=== PATIENT | female | born 1940 | race Caucasian/White ===

== ENCOUNTER 2016-10-18 17:26 | Inpatient (IN) | payer MEDICARE ==
[~2016-10-18] VITALS: Ht 154.9 cm; Wt 57.2 kg
[~2016-10-18 17:26] MED LIST: CHOL1TAB16 PO; PRAV20 PO
[2016-10-18 17:30] VITALS: BP 169/73; PULSE 89; RESP 17; TEMP 99.5; O2SAT 99
--- NOTE | 2016-10-18 17:58 | PD ---
HPI Chief Complaint: General Weakness Time Seen by Provider: 17:57 Travel History International Travel<30 days: No Contact w/Intl Traveler<30days: No Traveled to known affect area: No History of Present Illness HPI 76-year-old female came to the emergency room with history of feeling sudden onset weakness that started at about 1:30 PM today. Patient is been treated for allergic reaction for a diffuse rash that has developed for past 4 days. Also she is been treated for a walking pneumonia by her primary care. Patient is taking Medrol Dosepak and Zithromax for those. She says she has not been feeling well over the past 3-4 days but this afternoon after eating her lunch she got significantly weak and lethargic. Family called 911 and EMS gave her IV Benadryl. [facility] Past Medical History Narrative Medical List of her past medical history as reviewed from the nursing note. Cancer: No Cardiovascular Problems: No High Cholesterol: Yes Diabetes: No Endocrine: No Genitourinary: No Hepatitis: No Hiatal Hernia: No Immune Disorder: Yes (HX RHEUMATOID ARTHRITIS) Musculoskeletal: Yes (RHEUMATOID ARTHRITIS (REMISSION)) Neurologic: No Psychiatric: No Reproductive: No Respiratory: No Thyroid Disease: No Menopausal: Yes Tubal Ligation: Yes Past Surgical History Abdominal Surgery: No AICD: No Body Medical Devices: NONE Ear Surgery: No Endocrine Surgery: No Eye Surgery: Yes (LEFT EYE CATARACT EXTRACT.) Genitourinary Surgery: No Gynecologic Surgery: Yes (TUBAL LIG.) Joint Replacement: No Oral Surgery: No Pacemaker: No Thoracic Surgery: Yes (YESICA BREAST BIOPSIES) Other Surgery: Yes (breast biopsy/lump regmoval) Social History Alcohol Use: No Tobacco Use: No Substance Use: No Allergies-Medications (Allergen,Severity, Reaction): Coded Allergies: Cortisporin (Verified Allergy, Severe, SWEELING, ITCHING, 10/18/16) Penicillin (Verified Allergy, Severe, PT DENIES ALLERY, 10/18/16) Sulfa (Verified Allergy, Severe, PT DENIES ALLERGY, 10/18/16) Hydrocortisone (Verified Allergy, Intermediate, SWELLING/RASH, 10/18/16) Neomycin (Verified Allergy, Intermediate, SWELLING/RASH, 10/18/16) Simvastatin (Verified Allergy, Intermediate, RASH/SWELLING/ITCHING, ) Triamcinolone (Verified Allergy, Intermediate, SWELLING/RASH, 10/18/16) Aspirin (Verified Adverse Reaction, Severe, DIZZINESS, LIGHTHEADED, ) Augmentin (Verified Adverse Reaction, Severe, Nausea/Vomiting, 10/18/16) Uncoded Allergies: THIMEROSAL (Allergy, Intermediate, SWELLING/RASH, 11/02/15) [id number] (Allergy, Intermediate, SEVERE SWELLING AND REDNESS , 11/02/15) Comments List of her allergies reviewed from the nursing note. Reported Meds & Prescriptions Reported Meds & Active Scripts Active No Active Prescriptions or Reported Medications Narrative Medication List of her home medications reviewed from the nursing note. Review of Systems Except as stated in HPI: all other systems reviewed are Neg Physical Exam Narrative GENERAL: Somnolent, wakes up and answers questions appropriately, moderate distress SKIN: Warm and dry. Maculopapular erythematous Generalized rash with blanching HEAD: Atraumatic. Normocephalic. EYES: Pupils equal and round. No scleral icterus. No injection or drainage. ENT: No nasal bleeding or discharge. Mucous membranes pink and moist. NECK: Trachea midline. No JVD. CARDIOVASCULAR: Regular rate and rhythm. No murmur appreciated. RESPIRATORY: No accessory muscle use. Clear to auscultation. Breath sounds equal bilaterally. GASTROINTESTINAL: Abdomen soft, non-tender, nondistended. Hepatic and splenic margins not palpable. MUSCULOSKELETAL: No obvious deformities. No clubbing. No cyanosis. No edema. NEUROLOGICAL: Awake and alert. No obvious cranial nerve deficits. Motor grossly within normal limits. Normal speech. PSYCHIATRIC: Appropriate mood and affect; insight and judgment normal. Data Data Last Documented VS Vital Signs Date Time Temp Pulse Resp B/P Pulse Ox O2 Delivery O2 Flow Rate FiO2 10/18/16 19:06 84 24 154/70 Room Air 10/18/16 17:34 99 10/18/16 17:30 99.5 Orders Complete Blood Count With Diff (10/18/16 18:07) Comprehensive Metabolic Panel (10/18/16 18:07) Lactic Acid Sepsis Protocol (10/18/16 18:07) Urinalysis - C+S If Indicated (10/18/16 18:07) Blood Culture (10/18/16 18:07) Chest, Single Ap (10/18/16 18:07) Blood Glucose (10/18/16 18:07) Ecg Monitoring (10/18/16 18:07) Iv Access Insert/Monitor (10/18/16 18:07) Oximetry (10/18/16 18:07) Oxygen Administration (10/18/16 18:07) Sodium Chlor 0.9% 1000 Ml Inj (Ns 1000 M (10/18/16 18:07) Sodium Chlor 0.9% 1000 Ml Inj (Ns 1000 M (10/18/16 18:07) Admit Order (Ed Use Only) (10/18/16 19:42) Labs Laboratory Tests Test 10/18/16 18:15 White Blood Count 10.2 TH/MM3 Red Blood Count 4.67 MIL/MM3 Hemoglobin 14.8 GM/DL Hematocrit 43.7 % Mean Corpuscular Volume 93.6 FL Mean Corpuscular Hemoglobin 31.7 PG Mean Corpuscular Hemoglobin 33.9 % Concent Red Cell Distribution Width 13.0 % Platelet Count 248 TH/MM3 Mean Platelet Volume 7.9 FL Neutrophils (%) (Auto) 89.9 % Lymphocytes (%) (Auto) 7.3 % Monocytes (%) (Auto) 2.3 % Eosinophils (%) (Auto) 0.4 % Basophils (%) (Auto) 0.1 % Neutrophils # (Auto) 9.2 TH/MM3 Lymphocytes # (Auto) 0.7 TH/MM3 Monocytes # (Auto) 0.2 TH/MM3 Eosinophils # (Auto) 0.0 TH/MM3 Basophils # (Auto) 0.0 TH/MM3 CBC Comment DIFF FINAL Differential Comment Urine Color LIGHT-YELLOW Urine Turbidity CLEAR Urine pH 7.0 Urine Specific [place] 1.004 Urine Protein NEG mg/dL Urine Glucose (UA) NEG mg/dL Urine Ketones 10 mg/dL Urine Occult Blood NEG Urine Nitrite NEG Urine Bilirubin NEG Urine Urobilinogen LESS THAN 2.0 MG/DL Urine Leukocyte Esterase NEG Urine WBC LESS THAN 1 /hpf Urine Squamous Epithelial <1 /hpf Cells Microscopic Urinalysis Comment CATH-CULT NOT IND Sodium Level 137 MEQ/L Potassium Level 4.2 MEQ/L Chloride Level 107 MEQ/L Carbon Dioxide Level 22.2 MEQ/L Anion Gap 8 MEQ/L Blood Urea Nitrogen 11 MG/DL Creatinine 0.86 MG/DL Estimat Glomerular Filtration 64 ML/MIN Rate Random Glucose 127 MG/DL Lactic Acid Level 1.3 mmol/L Calcium Level 8.0 MG/DL Total Bilirubin 0.5 MG/DL Aspartate Amino Transf 15 U/L (AST/SGOT) Alanine Aminotransferase 14 U/L (ALT/SGPT) Alkaline Phosphatase 65 U/L Total Protein 6.5 GM/DL Albumin 3.2 GM/DL MDM Medical Decision Making Medical Screen Exam Complete: Yes Emergency Medical Condition: Yes Medical Record Reviewed: Yes Differential Diagnosis Anaphylactic shock, allergic reaction, electrolyte abnormalities, sepsis Narrative Course 6:53 PM awaiting for the blood test results. Patient is getting IV fluid as per the protocol. Chest x-rays within normal limits. Case will be signed over to the oncoming ER physician. Procedures EKG Prior to Arrival: No Scripts No Active Prescriptions or Reported Meds Judy Ventura MD Oct 18, 2016 17:58
[2016-10-18] MEDS ORDERED: SODIUM CHLOR 0.9% 1000 ML INJ 800 ML IV ONE (18:07)
[2016-10-18] MEDS ORDERED: SODIUM CHLOR 0.9% 1000 ML INJ 1,000 ML IV ONE (18:07)
--- NOTE | 2016-10-18 18:49 | RADRPT ---
EXAM DATE/TIME: 10/18/2016 18:23 [facility] COMPARISON: No previous studies available for comparison. INDICATIONS : Shortness of breath and cough for the past week. MEDICAL HISTORY : None. SURGICAL HISTORY : Bilateral breast biopsy. ENCOUNTER: Initial ACUITY: 1 week PAIN SCORE: 2/10 LOCATION: Bilateral chest FINDINGS: A single view of the chest demonstrates the lungs to be symmetrically aerated without evidence of mas s, infiltrate or effusion. No evidence of pneumothorax. The cardiomediastinal contours are unremark able. Osseous structures are intact. CONCLUSION: The lungs are clear. Jaspal Ochoa MD on October 18, 2016 at 18:47 Board Certified Radiologist. This report was verified electronically.
[2016-10-18 18:52] LABS: AUTOMATED NEUTROPHIL # 9.2 TH/MM3 (1.8-7.7); BASOPHIL % 0.1 % (0.0-2.0); EOSINOPHIL % 0.4 % (0.0-4.0); HEMATOCRIT 43.7 % (35.0-46.0); HEMO FLAGS DIFF FINAL; LYMPH % 7.3 % (9.0-44.0); LYMPHOCYTE # 0.7 TH/MM3 (1.0-4.8); MEAN CELL VOLUME 93.6 FL (80.0-100.0); MEAN CORPUSCULAR HEMOGLOBIN 31.7 PG (27.0-34.0); MEAN CORPUSCULAR HGB CONC 33.9 % (32.0-36.0); MONO % 2.3 % (0.0-8.0); NEUT % 89.9 % (16.0-70.0); PLATELET COUNT 248 TH/MM3 (150-450); RED BLOOD COUNT 4.67 MIL/MM3 (4.00-5.30); WHITE BLOOD COUNT 10.2 TH/MM3 (4.0-11.0)
[2016-10-18 18:57] LABS: BLOOD, URINE NEG (NEG); GLUCOSE,URINE NEG (NEG); KETONE, URINE 10 mg/dL (NEG); NITRITE,URINE NEG (NEG); SQUAMOUS EPITHELIAL CELL URINE <1 /hpf (0-5); URINE COLOR LIGHT-YELLOW (YELLW/STRAW)
[2016-10-18 19:06] VITALS: BP 154/70; PULSE 84; RESP 24
[2016-10-18 19:09] LABS: COMMENT (UR) CATH-CULT NOT IND; CULTURE IF INDICATED CATH CULTURE NOT IND
[2016-10-18 19:14] LABS: ALKALINE PHOSPHATASE 65 U/L (45-117); ALT (GPT) 14 U/L (10-53); ANION GAP 8 MEQ/L (5-15); AST (GOT) 15 U/L (15-37); BICARBONATE 22.2 MEQ/L (21.0-32.0); BLOOD UREA NITROGEN 11 MG/DL (7-18); CHLORIDE 107 MEQ/L (98-107); GLOMERULAR FILTRATION RATE 64 ML/MIN (>89); POTASSIUM 4.2 MEQ/L (3.5-5.1); SODIUM (NA) 137 MEQ/L (136-145); TOTAL BILIRUBIN ADULT 0.5 MG/DL (0.2-1.0)
--- NOTE | 2016-10-18 19:22 | PD ---
Physical Exam Narrative Patient was seen by ED physician and signed out to me. Data Data Last Documented VS Vital Signs Date Time Temp Pulse Resp B/P Pulse Ox O2 Delivery O2 Flow Rate FiO2 10/18/16 19:06 84 24 154/70 Room Air 10/18/16 17:34 99 10/18/16 17:30 99.5 Orders Complete Blood Count With Diff (10/18/16 18:07) Comprehensive Metabolic Panel (10/18/16 18:07) Lactic Acid Sepsis Protocol (10/18/16 18:07) Urinalysis - C+S If Indicated (10/18/16 18:07) Blood Culture (10/18/16 18:07) Chest, Single Ap (10/18/16 18:07) Blood Glucose (10/18/16 18:07) Ecg Monitoring (10/18/16 18:07) Iv Access Insert/Monitor (10/18/16 18:07) Oximetry (10/18/16 18:07) Oxygen Administration (10/18/16 18:07) Sodium Chlor 0.9% 1000 Ml Inj (Ns 1000 M (10/18/16 18:07) Sodium Chlor 0.9% 1000 Ml Inj (Ns 1000 M (10/18/16 18:07) Labs Laboratory Tests Test 10/18/16 18:15 White Blood Count 10.2 TH/MM3 Red Blood Count 4.67 MIL/MM3 Hemoglobin 14.8 GM/DL Hematocrit 43.7 % Mean Corpuscular Volume 93.6 FL Mean Corpuscular Hemoglobin 31.7 PG Mean Corpuscular Hemoglobin 33.9 % Concent Red Cell Distribution Width 13.0 % Platelet Count 248 TH/MM3 Mean Platelet Volume 7.9 FL Neutrophils (%) (Auto) 89.9 % Lymphocytes (%) (Auto) 7.3 % Monocytes (%) (Auto) 2.3 % Eosinophils (%) (Auto) 0.4 % Basophils (%) (Auto) 0.1 % Neutrophils # (Auto) 9.2 TH/MM3 Lymphocytes # (Auto) 0.7 TH/MM3 Monocytes # (Auto) 0.2 TH/MM3 Eosinophils # (Auto) 0.0 TH/MM3 Basophils # (Auto) 0.0 TH/MM3 CBC Comment DIFF FINAL Differential Comment Urine Color LIGHT-YELLOW Urine Turbidity CLEAR Urine pH 7.0 Urine Specific [place] 1.004 Urine Protein NEG mg/dL Urine Glucose (UA) NEG mg/dL Urine Ketones 10 mg/dL Urine Occult Blood NEG Urine Nitrite NEG Urine Bilirubin NEG Urine Urobilinogen LESS THAN 2.0 MG/DL Urine Leukocyte Esterase NEG Urine WBC LESS THAN 1 /hpf Urine Squamous Epithelial <1 /hpf Cells Microscopic Urinalysis Comment CATH-CULT NOT IND Sodium Level 137 MEQ/L Potassium Level 4.2 MEQ/L Chloride Level 107 MEQ/L Carbon Dioxide Level 22.2 MEQ/L Anion Gap 8 MEQ/L Blood Urea Nitrogen 11 MG/DL Creatinine 0.86 MG/DL Estimat Glomerular Filtration 64 ML/MIN Rate Random Glucose 127 MG/DL Lactic Acid Level 1.3 mmol/L Calcium Level 8.0 MG/DL Total Bilirubin 0.5 MG/DL Aspartate Amino Transf 15 U/L (AST/SGOT) Alanine Aminotransferase 14 U/L (ALT/SGPT) Alkaline Phosphatase 65 U/L Total Protein 6.5 GM/DL Albumin 3.2 GM/DL MDM Supervised Visit with ADELINE: No Interpretation(s) Last Impressions Chest X-Ray 10/18/16 1807 Signed Impressions: Service Date/Time: Tuesday, October 18, 2016 18:23 - CONCLUSION: The lungs are clear. Jaspal Ochoa MD 1925 PM. CBC within normal limit. WBC 10.2. 89 neutrophil. CMP within normal limit. Lactic acid 1.3. UA negative. Diagnosis Primary Impression: Altered mental status Qualified Code: R41.82 - Altered mental status, unspecified altered mental status type Additional Impression: Allergic dermatitis Admitting Information Admitting Physician Requests: Observation Fredi Vega MD Oct 18, 2016 19:22
--- NOTE | 2016-10-18 19:49 | HHI.HP ---
[facility] Tyler Hill MD Admission Diagnosis generalized weakness. Allergic dermatitis. Diagnoses: (1) Generalized weakness Diagnosis: Principal (2) Viral syndrome Diagnosis: Principal (3) Allergic dermatitis Diagnosis: Principal Travel History International Travel<30 Days: No Contact w/Intl Traveler <30 Da: No Traveled to Known Affected Are: No History of Present Illness This is a 76-year-old female with a PMH of Rheumatoid Arthritis who was brought to the ER by family secondary to generalized weakness. Per pt and family, she was started on Zithro for PNA approx 1 wk ago w/ some improvement. States she developed rash on torso which she's had several times in the past, and for which she follows w/ a Authorization Specialist, diagnosed w/ Allergic Dermatitis from daphne/citrus. Seen by PCP on Thursday and states rash involved neck/trunk only , prescribed Prednisone and Benadryl but states rash has progressed to lower extremities-similar to previous episodes. Today, pt w/ significant weakness. Daughter reports she was unable to get her up at which point they called 911. S /p Benadryl IV en route to ER, somewhat lethargic on arrival, now AA&Ox4. Review of Systems Other ROS: 14 point review of systems otherwise negative. Past Family Social History Past Medical History PMH: Rheumatoid Arthritis Past Surgical History PAST SURGICAL HISTORY: Cataract Surgery, Tubal Ligation, Breast Biopsy Allergies: Coded Allergies: Cortisporin (Verified Allergy, Severe, SWEELING, ITCHING, 10/18/16) Penicillin (Verified Allergy, Severe, PT DENIES ALLERY, 10/18/16) Sulfa (Verified Allergy, Severe, PT DENIES ALLERGY, 10/18/16) Hydrocortisone (Verified Allergy, Intermediate, SWELLING/RASH, 10/18/16) Neomycin (Verified Allergy, Intermediate, SWELLING/RASH, 10/18/16) Simvastatin (Verified Allergy, Intermediate, RASH/SWELLING/ITCHING, ) Triamcinolone (Verified Allergy, Intermediate, SWELLING/RASH, 10/18/16) Aspirin (Verified Adverse Reaction, Severe, DIZZINESS, LIGHTHEADED, ) Augmentin (Verified Adverse Reaction, Severe, Nausea/Vomiting, 10/18/16) Uncoded Allergies: THIMEROSAL (Allergy, Intermediate, SWELLING/RASH, 11/02/15) [id number] (Allergy, Intermediate, SEVERE SWELLING AND REDNESS , 11/02/15) Family History PAST FAMILY HISTORY: Reviewed. No h/o DM or CAD Social History PAST SOCIAL HISTORY: Negative for alcohol, tobacco or drugs. Physical Exam Vital Signs Vital Signs Date Time Temp Pulse Resp B/P Pulse Ox O2 Delivery O2 Flow Rate FiO2 10/18/16 19:06 84 24 154/70 Room Air 10/18/16 17:34 89 17 99 Room Air 10/18/16 17:30 99.5 89 17 169/73 99 Physical Exam PE: GENERAL: Elderly white female in no acute distress, under several layers of blankets, appears to feel unwell. and daughter at bedside. HEENT: PERRLA, EOMI. No scleral icterus or conjunctival pallor. No lid lag or facial droop. CARDIOVASCULAR: Regular rate and rhythm. No obvious murmurs to auscultation. No chest tenderness to palpation. RESPIRATORY: No obvious rhonchi or wheezing. Clear to auscultation. Breath sounds equal bilaterally. GASTROINTESTINAL: Abdomen soft, non-tender, nondistended. BS normal. MUSCULOSKELETAL: Extremities without clubbing, cyanosis, or edema. No obvious deformities. Diffuse papular rash along trunk and extremities. NEUROLOGICAL: Awake, alert and oriented x4. No focal neurologic deficits. Moving both upper and lower extremities spontaneously. Laboratory Laboratory Tests Test 10/18/16 18:15 White Blood Count 10.2 Red Blood Count 4.67 Hemoglobin 14.8 Hematocrit 43.7 Mean Corpuscular Volume 93.6 Mean Corpuscular Hemoglobin 31.7 Mean Corpuscular Hemoglobin 33.9 Concent Red Cell Distribution Width 13.0 Platelet Count 248 Mean Platelet Volume 7.9 Neutrophils (%) (Auto) 89.9 Lymphocytes (%) (Auto) 7.3 Monocytes (%) (Auto) 2.3 Eosinophils (%) (Auto) 0.4 Basophils (%) (Auto) 0.1 Neutrophils # (Auto) 9.2 Lymphocytes # (Auto) 0.7 Monocytes # (Auto) 0.2 Eosinophils # (Auto) 0.0 Basophils # (Auto) 0.0 CBC Comment DIFF FINAL Differential Comment Urine Color LIGHT-YELLOW Urine Turbidity CLEAR Urine pH 7.0 Urine Specific [place] 1.004 Urine Protein NEG Urine Glucose (UA) NEG Urine Ketones 10 Urine Occult Blood NEG Urine Nitrite NEG Urine Bilirubin NEG Urine Urobilinogen LESS THAN 2.0 Urine Leukocyte Esterase NEG Urine WBC LESS THAN 1 Urine Squamous Epithelial <1 Cells Microscopic Urinalysis Comment CATH-CULT NOT IND Sodium Level 137 Potassium Level 4.2 Chloride Level 107 Carbon Dioxide Level 22.2 Anion Gap 8 Blood Urea Nitrogen 11 Creatinine 0.86 Estimat Glomerular Filtration 64 Rate Random Glucose 127 Lactic Acid Level 1.3 Calcium Level 8.0 Total Bilirubin 0.5 Aspartate Amino Transf 15 (AST/SGOT) Alanine Aminotransferase 14 (ALT/SGPT) Alkaline Phosphatase 65 Total Protein 6.5 Albumin 3.2 Date/Time Procedure Status Source Growth 10/18/16 18:20 Aerobic Blood Culture Received Blood Peripheral Pending 10/18/16 18:20 Anaerobic Blood Culture Received Blood Peripheral Pending Result Diagram: 10/18/16181410/18/161814 Assessment and Plan Problem List: (1) Generalized weakness ICD Code: R53.1 Status: Acute (2) Allergic dermatitis ICD Code: L23.9 Status: Acute (3) Viral syndrome ICD Code: B34.9 Status: Acute Assessment and Plan A/P: 1. Generalized Weakness: Likely multifactorial-Recent PNA, Viral Syndrome and Allergic Dermatitis, c/o progressive weakness x1 wk, unable to ambulate today. Vitals stable, labs unremarkable. IVF for hydration. Repeat labs in am. PT for eval/tx. 2. 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 Now w/ maculopapular rash involving trunk and extremities, similar to previous episodes. Started on Prednisone by PCP. Will give Solu-Medrol, Benadryl prn. Follow up w/ Authorization Specialist as planned. 3. Viral Syndrome: generalized weakness/malaise possibly related to viral syndrome. IVF as above, repeat labs in am. 4. DVT Prophylaxis: SCD/Teds. 5. Social work for d/c planning as needed. 6. Case discussed w/ ER physician at length. Maira Tucker MD Oct 18, 2016 19:49
[2016-10-18] MEDS ORDERED: ACETAMINOPHEN/HYDROcodone 325 MG/10 MG TAB PO PRN (20:00)
[2016-10-18] MEDS ORDERED: ACETAMINOPHEN/HYDROcodone 325 MG/5 MG TAB PO PRN (20:00)
[2016-10-18] MEDS ORDERED: ONDANSETRON HCL 4 MG/2 ML VIAL IVP PRN (20:00)
[2016-10-18] MEDS ORDERED: ACETAMINOPHEN 325 MG TAB PO PRN (20:00)
[2016-10-18] MEDS ORDERED: BISACODYL 10 MG SUPP PR PRN (20:00)
[2016-10-18] MEDS ORDERED: SODIUM CHLORIDE 0.9% FLUSH 5 ML FLUSH FLUSH PRN (20:00)
[2016-10-18] MEDS: SODIUM CHLOR 0.9% 1000 ML INJ 1,000 ML IV SCH (20:47)
[2016-10-18] MEDS: SODIUM CHLORIDE 0.9% FLUSH 5 ML FLUSH FLUSH SCH (21:00)
[2016-10-18] MEDS ORDERED: methylPREDNISolone SOD SUCC 125 MG/2 ML VIAL IV PUSH ONE (21:15)
[2016-10-18] MEDS: diphenhydrAMINE HCL 50 MG/ML VIAL IV PUSH PRN (21:26)
[2016-10-18 21:43] VITALS: BP 133/61; PULSE 88; RESP 20; O2SAT 92
[2016-10-18 22:01] VITALS: BP 162/70; PULSE 78; RESP 18; TEMP 97; O2SAT 95
[2016-10-18 23:50] VITALS: BP 108/52; PULSE 75; RESP 18; TEMP 96.2; O2SAT 95
[2016-10-19] VITALS (8 sets, daily range): BP systolic 119–177; BP diastolic 56–75; PULSE 78–102; RESP 17–22; TEMP 96–98.2; O2SAT 93–97
[2016-10-19] MEDS: diphenhydrAMINE HCL 50 MG/ML VIAL IV PUSH PRN ×2 (02:36→08:27)
[2016-10-19] MEDS ORDERED: diphenhydrAMINE HCL 50 MG/ML VIAL IV PUSH ONE ×2 (04:15)
[2016-10-19] MEDS: SODIUM CHLOR 0.9% 1000 ML INJ 1,000 ML IV SCH ×2 (06:00→18:45)
[2016-10-19] MEDS: SODIUM CHLORIDE 0.9% FLUSH 5 ML FLUSH FLUSH SCH ×2 (08:27→21:32)
[2016-10-19 08:59] LABS: AUTOMATED NEUTROPHIL # 12.1 TH/MM3 (1.8-7.7); EOSINOPHIL # 0.1 TH/MM3 (0-0.4); EOSINOPHIL % 0.4 % (0.0-4.0); HEMATOCRIT 44.3 % (35.0-46.0); HEMO FLAGS DIFF FINAL; LYMPH % 7.6 % (9.0-44.0); MEAN CELL VOLUME 94.3 FL (80.0-100.0); MEAN CORPUSCULAR HEMOGLOBIN 31.8 PG (27.0-34.0); MEAN CORPUSCULAR HGB CONC 33.7 % (32.0-36.0); MONO % 2.6 % (0.0-8.0); NEUT % 89.4 % (16.0-70.0); PLATELET COUNT 228 TH/MM3 (150-450); WHITE BLOOD COUNT 13.5 TH/MM3 (4.0-11.0)
[2016-10-19 09:07] LABS: ALKALINE PHOSPHATASE 64 U/L (45-117); ALT (GPT) 15 U/L (10-53); ANION GAP 11 MEQ/L (5-15); AST (GOT) 16 U/L (15-37); BICARBONATE 18.2 MEQ/L (21.0-32.0); BLOOD UREA NITROGEN 9 MG/DL (7-18); CHLORIDE 112 MEQ/L (98-107); GLOMERULAR FILTRATION RATE 57 ML/MIN (>89); SODIUM (NA) 141 MEQ/L (136-145); TOTAL BILIRUBIN ADULT 0.6 MG/DL (0.2-1.0)
--- NOTE | 2016-10-19 09:40 | HHI.PR ---
Subjective Remarks Follow up for rash, weakness. The patient complains of diffuse RUE and RLE numbness that has been intermittent throughout the night and now increasing in intensity. Reports some blurred vision from her right eye and sees a spot in the right eye. She states she had cataract surgery approximately 4months ago. No slurred speech or unilateral weakness. The rash has not improved overnight, occasionally pruritic. She says she's seen Dr. Benavidez for allergies in the past. She still feels very weak today. She has not yet ambulated today. She has no other medical complaints at this time. Objective Vitals Vital Signs Date Time Temp Pulse Resp B/P Pulse Ox O2 Delivery O2 Flow Rate FiO2 10/19/16 07:30 97.8 84 20 145/70 94 10/19/16 04:42 96.0 80 18 119/56 95 10/18/16 23:50 96.2 75 18 108/52 95 10/18/16 22:01 97.0 78 18 162/70 95 10/18/16 21:43 88 20 133/61 92 Room Air 10/18/16 19:06 84 24 154/70 Room Air 10/18/16 17:34 89 17 99 Room Air 10/18/16 17:30 99.5 89 17 169/73 99 I/O 10/18/16 10/18/16 10/18/16 10/19/16 10/19/16 10/19/16 07:00 15:00 23:00 07:00 15:00 23:00 Intake Total 1235 ml Balance 1235 ml Intake Oral 480 ml IV Total 755 ml # Voids 1 6 # Bowel Movements 1 Result Diagram: 10/19/16 0815 10/19/16 0815 Imaging Last Impressions Chest X-Ray 10/18/16 1807 Signed Impressions: Service Date/Time: Tuesday, October 18, 2016 18:23 - CONCLUSION: The lungs are clear. Jaspal Ochoa MD Objective Remarks GENERAL: Well-developed, well-nourished female patient in [facility]. SKIN: Warm and dry. Diffuse maculopapular rash throughout neck, chest, trunk, back, and spreads down to the bilateral lower extremities. HEAD: Atraumatic. Normocephalic. EYES: Pupils equal and round. No scleral icterus. No injection or drainage. ENT: No nasal bleeding or discharge. Mucous membranes pink and moist. NECK: Trachea midline. CARDIOVASCULAR: Regular rate and rhythm. No murmur. RESPIRATORY: No accessory muscle use. Clear to auscultation. Breath sounds equal bilaterally. GASTROINTESTINAL: Abdomen soft, non-tender, nondistended. Hepatic and splenic margins not palpable. MUSCULOSKELETAL: Extremities without clubbing, cyanosis, or edema. No obvious deformities. NEUROLOGICAL: Awake and alert. No obvious cranial nerve deficits. Motor grossly within normal limits. 5/5 muscle strength in the arms and legs. Normal speech. No pronator drift. PSYCHIATRIC: Appropriate mood and affect; insight and judgment normal. Medications and IVs Current Medications Medications (Trade) Dose Ordered Sig/Krishan Route Start Time Stop Time Status Last Admin (NS 1000 ml Inj) 1,000 ml @ 100 mls/hr Q10H IV 10/18/16 20:00 10/18/16 20:47 (NS Flush) 2 ml UNSCH PRN FLUSH 10/18/16 20:00 (NS Flush) 2 ml BID FLUSH 10/18/16 21:00 (Zofran Inj) 4 mg Q6H PRN IVP 10/18/16 20:00 (Dulcolax Supp) 10 mg DAILY PRN DE 10/18/16 20:00 (Tylenol) 650 mg Q6H PRN PO 10/18/16 20:00 10/18/16 23:06 (Marshall 5-325 Mg) 1 tab Q4H PRN PO 10/18/16 20:00 (Marshall 10-325 Mg) 1 tab Q4H PRN PO 10/18/16 20:00 (Benadryl Inj) 25 mg Q4H PRN IV PUSH 10/18/16 21:15 10/19/16 08:27 Urinary Catheter: No Vascular Central Line Catheter: No A/P Problem List: (1) Generalized weakness ICD Code: R53.1 Status: Acute (2) Allergic dermatitis ICD Code: L23.9 Status: Acute (3) Viral syndrome ICD Code: B34.9 Status: Acute Assessment and Plan 76-year-old female with a PMH of Rheumatoid Arthritis who was brought to the ER by family secondary to rash and generalized weakness. Generalized Weakness: Likely multifactorial-Recent PNA, Viral Syndrome and Allergic Dermatitis, c/o progressive weakness x1 wk, unable to ambulate. Vitals stable, labs unremarkable. IVF for hydration. PT for eval/tx. 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 Now w/ maculopapular rash involving trunk/extremities, similar to previous episodes. Started on Prednisone by PCP. S/p IV Solumedrol, will continue on Prednisone 50mg po daily , Zantac bid, Zyrtec hs. Stop benadryl, likely contributing to weakness/ drowsiness. Give Epinephrine x1. Topical benadryl. Follow up w/ Seed Yeast Operator as planned. RUE/RLE Numbness and Blurred Vision: concern for TIA/CVA. Check Head CT. Consult neurology. Viral Syndrome: generalized weakness/malaise possibly related to viral syndrome. CXR clear. IVF. DVT Prophylaxis: SCD/Teds. Written by Shira Natarajan, acting as scribe for Dr. Anthony on 10/19/16 at 09:34. The documentation accurately reflects the work performed [id number] by va Dr. Anthony on 10/19/16 at 09:34. Shira Natarajan PA-C Oct 19, 2016 09:40 Cristina Anthony MD Oct 19, 2016 14:36
[2016-10-19] MEDS ORDERED: EPINEPHrine HCL (1:1000) 1 MG/ML VIAL IM ONE (10:00)
[2016-10-19] MEDS: predniSONE 50 MG TAB PO SCH (10:41)
[2016-10-19] MEDS: FAMOTIDINE 20 MG TAB PO SCH ×2 (10:41→21:31)
[2016-10-19] MEDS: diphenhydrAMINE HCL 2%/ZINC ACETATE 0.1% CREAM 30 APPLIC/30 GM TUBE TOPICAL PRN ×2 (10:42→22:30)
--- NOTE | 2016-10-19 11:24 | RADRPT ---
EXAM DATE/TIME: 10/19/2016 11:03 [facility] COMPARISON: CT BRAIN W/O CONTRAST, November 02, 2015, 19:58. INDICATIONS : Right extremity weakness. RADIATION DOSE: 33.74 CTDIvol (mGy) MEDICAL HISTORY : Cardiovascular disease. SURGICAL HISTORY : None. ENCOUNTER: Initial ACUITY: 1 day PAIN SCALE: 0/10 LOCATION: cranial TECHNIQUE: Multiple contiguous axial images were obtained of the head. Using automated exposure control and adj ustment of the mA and/or kV according to patient size, radiation dose was kept as low as reasonably a chievable to obtain optimal diagnostic quality images. FINDINGS: CEREBRUM: The ventricles are normal for age. Stable cortical atrophy and chronic white matter changes. No evid ence of midline shift, mass lesion, hemorrhage or acute infarction. No extra-axial fluid collections are seen. POSTERIOR FOSSA: The cerebellum and brainstem are intact. The 4th ventricle is midline. The cerebellopontine angle i s unremarkable. EXTRACRANIAL: The visualized portion of the orbits is intact. SKULL: The calvaria is intact. No evidence of skull fracture. CONCLUSION: Normal examination for a patient of this age. No significant change has occurred. Ralph Fontenot MD on October 19, 2016 at 11:22 Board Certified Radiologist. This report was verified electronically.
--- NOTE | 2016-10-19 13:13 | EKG ---
Date Performed: 10/18/2016 Time Performed: 21:10:04 PTAGE: 76 years EKG: Sinus rhythm WITH OCCASIONAL SUPRAVENTRICULAR PREMATURE COMPLEXES LOW QRS VOLTAGE IN PRECORDIAL LEADS ST DEVIATIO N AND MODERATE T-WAVE ABNORMALITY, CONSIDER ANTERIOR ISCHEMIA ABNORMAL ECG Compared to prior tracing no significant change PREVIOUS TRACING : 03/31/2016 10.09 DOCTOR: Tyler Andrade Interpretating Date/Time 10/19/2016 13:10:47
[2016-10-19] MEDS ORDERED: LORazepam 2 MG/ML VIAL IV PUSH PRN (15:00)
[2016-10-19] MEDS ORDERED: GADODIAMIDE PF 287 MG/ML 20 ML VIAL (for RAD MRI) IV ONE (15:07)
[2016-10-19] MEDS: CLOPIDOGREL 75 MG TAB PO SCH (15:20)
--- NOTE | 2016-10-19 15:40 | RADRPT ---
EXAM DATE/TIME: 10/19/2016 14:49 [facility] COMPARISON: MRA CAROTIDS W CONTRAST, October 19, 2016, 14:49. MRI BRAIN W/O CONTRAST, October 19, 2016, 14:49. INDICATIONS : Right sided weakness. MEDICAL HISTORY : None. SURGICAL HISTORY : Tubal ligation. ENCOUNTER: Initial ACUITY: 1 day PAIN SCORE: 0/10 LOCATION: Please note a normal MRA of the brain does not entirely exclude the possibility of a small aneurysm, nor the possibility of distal intracranial vessel disease. TECHNIQUE: 3D time of flight MRA was performed. Source images, multiplanar STS MIP, and 3D volume MIP reconstru ctions were reviewed. FINDINGS: The anterior circulation is intact with symmetric sized A1 and M1 segments bilaterally. No flow is s een in the anterior communicating artery. The basilar artery is fed predominantly from the right vertebral. The basilar tip is normal in confi guration. The superior cerebellar arteries are symmetric. There is intact flow in the right posteri or cerebral artery. There is very little flow discernible in the left posterior cerebral artery. So me flow is seen in the left posterior communicating artery, and this probably provides the limited fl ow that is present. MRI demonstrates an acute infarction in the SECRETARIAL TEACHER distribution (posterior occipita l lobe). No flow in the right PCOM. CONCLUSION: Severely diminished flow in the left posterior cerebral artery from the origin of the basilar with a minimal contribution of flow from the left PCOM. This vascular abnormality does correlate with the a cute infarction seen on MRI. Jaspal Ochoa MD on October 19, 2016 at 15:32 Board Certified Radiologist. This report was verified electronically.
--- NOTE | 2016-10-19 15:48 | RADRPT ---
EXAM DATE/TIME: 10/19/2016 14:49 [facility] COMPARISON: MRA BRAIN W/O CONTRAST, October 19, 2016, 14:49. INDICATIONS : Right sided weakness. MEDICAL HISTORY : None. SURGICAL HISTORY : Tubal ligation. ENCOUNTER: Initial ACUITY: 1 day PAIN SCORE: 0/10 LOCATION: cranial TECHNIQUE: Multiplanar, multisequence MRI of the brain was performed without contrast. FINDINGS: Examination is abnormal demonstrating a focal area of restricted diffusion in the inferior left occip ital pole measuring up to 2.5 cm in transverse width. There is only minimal T1 prolongation and T2 p rolongation. No susceptibility artifact seen. There also a few scattered small areas of restricted diffusion superior and inferior to the dominant area in the left occipital lobe; all are within the d istribution of the posterior cerebral artery. No significant cerebral edema. The ventricles are nor mal in size. No extra axial fluid collections. No additional areas of acute infarction seen. No evidence of midline shift. The visualized structures of the orbits and paranasal sinuses are tomas sly intact. Posterior fossa structures are intact. 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 This does correlate with the vascular abnormality seen on MRA. Jaspal Ochoa MD on October 19, 2016 at 15:42 Board Certified Radiologist. This report was verified electronically.
--- NOTE | 2016-10-19 15:52 | MB ---
cc: PARVEEN TORRES M.D. DATE OF CONSULTATION: 10/19/2016. HISTORY OF PRESENT ILLNESS: She is a 76-year-old woman with history of right-sided numbness that started yesterday along with some difficulty with her vision, difficulty focusing. She has a history of rheumatoid arthritis and she developed a rash. She has a history of several allergic reactions. She was prescribed prednisone and Benadryl for the rash. ALLERGIES: OTHER ALLERGIES INCLUDE: 1. CORTISPORIN. 2. PENICILLIN. 3. SULFA. 4. HYDROCORTISONE. 5. NEOMYCIN. 6. SIMVASTATIN. 7. TRIAMCINOLONE. 8. ASPIRIN. 9. AUGMENTIN. EXAMINATION: Exam shows the patient to be alert, anxious but oriented. Ocular movements were full. She does have some visual field deficits on the right side that appears to be maximum inferior field. There is slight flattening on the right nasolabial fold. There is no hemiparesis but she is numb on the right side. She is not aphasic. He has 1+ reflexes, diminished at the ankles, plantar responses were flexor. Sensory exam without any gross abnormality. IMAGING STUDIES: The CT brain was reviewed, an essentially unremarkable study. LABORATORY DATA: White count of 13.5 today but was 10.2 yesterday. Hemoglobin and platelets normal. Chemistry is with normal sodium, potassium, BUN and creatinine normal. Glucose 127 yesterday and 141 today. ASSESSMENT: Right-sided numbness, some blurriness and probable visual field loss on the right side. Evidently left hemisphere ischemic stroke is the main consideration as a CT brain was negative. RECOMMENDATIONS AND PLAN: 1. We will schedule for MRI brain and MRA neck and head. 2. Start Plavix as she is allergic to aspirin. 3. Check a lipid profile as well. I will follow the neurological course. Thank you for asking us to assist in her care. Parveen Torres MD [facility] /2:46 PM /3:46 PM
--- NOTE | 2016-10-19 15:58 | RADRPT ---
EXAM DATE/TIME: 10/19/2016 14:49 [facility] COMPARISON: No previous studies available for comparison. INDICATIONS : Right side weakness. CONTRAST: 20 cc Omniscan (gadodiamide) IV MEDICAL HISTORY : None. SURGICAL HISTORY : Tubal ligation. ENCOUNTER: Initial ACUITY: 1 day PAIN SCORE: 0/10 LOCATION: cranial Percent stenosis is calculated using the diameter of the stenotic region over the diameter of the nor mal distal internal carotid artery. TECHNIQUE: Bolus infused MRA of the extracranial circulation was performed using a neurovascular coil. Post pro cessing was performed including rotationg subvolume maximum intensity projections of each carotid art jc, rotating full volume maximum intensity projections of both carotid arteries, sagittal and ceja l sliding thin slab reformations of each carotid artery, and left oblique sliding thin slab reformati on through the aortic arch to include the origin of the arch branch vessels. FINDINGS: AORTIC ARCH: There is a 2 vessel origin of the great vessels from the aorta in a bovine configuration. No evidenc e of ostial narrowing. RIGHT CAROTID: The common carotid artery is intact. The carotid bulb has a normal configuration without ulceration or narrowing. The internal carotid artery lumen is smooth without stenosis. The external carotid ar lotus is intact. LEFT CAROTID: The common carotid artery is intact. The carotid bulb has a normal configuration without ulceration or narrowing. The internal carotid artery lumen is smooth without stenosis. The external carotid ar lotus is intact. VERTEBRALS: The vertebral system is right dominant. The diameter of the distal left vertebral artery is signific antly smaller than the right. The basilar artery is normal in dimension. CONCLUSION: No significant stenosis seen. Jaspal Ochoa MD on October 19, 2016 at 15:46 Board Certified Radiologist. This report was verified electronically.
[2016-10-19] MEDS ORDERED: GLUCAGON 1 MG/ML VIAL IM/SQ PRN (16:00)
[2016-10-19] MEDS ORDERED: DEXTROSE 50% IN WATER 50 ML VIAL(D50) IV PUSH PRN (16:00)
[2016-10-19] MEDS: INSULIN ASPART SUPPLEMENTAL SCALE SQ SCH ×2 (16:00→22:00)
[2016-10-19] MEDS ORDERED: ENALAPRILAT 1.25 MG/ML VIAL IV PRN (16:00)
[2016-10-19] MEDS: CETIRIZINE HCL 10 MG TAB PO SCH (21:31)
[2016-10-20] VITALS (7 sets, daily range): BP systolic 118–145; BP diastolic 58–65; PULSE 70–97; RESP 18–20; TEMP 95.9–97.6; O2SAT 93–98
[2016-10-20] MEDS: SODIUM CHLOR 0.9% 1000 ML INJ 1,000 ML IV SCH ×3 (01:30→22:00)
[2016-10-20 08:13] LABS: HDL CHOLESTEROL 65.5 MG/DL (40.0-60.0)
[2016-10-20] MEDS: SODIUM CHLORIDE 0.9% FLUSH 5 ML FLUSH FLUSH SCH ×2 (09:48→20:45)
[2016-10-20] MEDS: FAMOTIDINE 20 MG TAB PO SCH ×2 (09:49→20:43)
[2016-10-20] MEDS: predniSONE 50 MG TAB PO SCH (09:49)
[2016-10-20] MEDS: CLOPIDOGREL 75 MG TAB PO SCH (09:49)
[2016-10-20] MEDS: INSULIN ASPART SUPPLEMENTAL SCALE SQ SCH ×3 (11:00→20:48)
[2016-10-20 11:30] LABS: HEMOGLOBIN Ao 84.4 %; HEMOGLOBIN LA1C 2.3 %; HEMOGLOBIN P3 5.3 %
--- NOTE | 2016-10-20 13:54 | HHI.PR ---
Review/Management Daily Summary neuro same field loss on the right anxious add statin, check echo rehab Subjective Subjective Comments No acute events reported No headache No chest pain No dyspnea Active Medications Current Medications Medications (Trade) Dose Ordered Sig/Krishan Route Start Time Stop Time Status Last Admin (NS 1000 ml Inj) 1,000 ml @ 100 mls/hr Q10H IV 10/18/16 20:00 10/20/16 12:00 (NS Flush) 2 ml UNSCH PRN FLUSH 10/18/16 20:00 (NS Flush) 2 ml BID FLUSH 10/18/16 21:00 10/20/16 09:48 (Zofran Inj) 4 mg Q6H PRN IVP 10/18/16 20:00 (Dulcolax Supp) 10 mg DAILY PRN AL 10/18/16 20:00 (Tylenol) 650 mg Q6H PRN PO 10/18/16 20:00 10/18/16 23:06 ([place] 5-325 Mg) 1 tab Q4H PRN PO 10/18/16 20:00 ([place] 10-325 Mg) 1 tab Q4H PRN PO 10/18/16 20:00 (ZyrTEC) 10 mg HS PO 10/19/16 21:00 10/19/16 21:31 (Pepcid) 10 mg BID PO 10/19/16 10:00 10/20/16 09:49 (Deltasone) 50 mg DAILY PO 10/19/16 11:00 10/20/16 09:49 (Benadryl 2% Cream) 1 applic TID PRN TOPICAL 10/19/16 11:00 10/19/16 22:30 (Plavix) 75 mg DAILY PO 10/19/16 15:00 10/20/16 09:49 (Ativan Inj) 0.5 mg ONCE PRN IV PUSH 10/19/16 15:00 10/24/16 14:59 (Vasotec Inj) 1.25 mg Q4H PRN IV 10/19/16 16:00 (D50w (Vial) Inj) 25 ml UNSCH PRN IV PUSH 10/19/16 16:00 (Glucagon Inj) 1 mg UNSCH PRN IM/SQ 10/19/16 16:00 Allergies Allergies Coded Allergies Cortisporin (Verified Allergy, Severe, SWEELING, ITCHING, 10/18/16) Penicillin (Verified Allergy, Severe, PT DENIES ALLERY, 10/18/16) Sulfa (Verified Allergy, Severe, PT DENIES ALLERGY, 10/18/16) Hydrocortisone (Verified Allergy, Intermediate, SWELLING/RASH, 10/18/16) Neomycin (Verified Allergy, Intermediate, SWELLING/RASH, 10/18/16) Simvastatin (Verified Allergy, Intermediate, RASH/SWELLING/ITCHING, 10/18/16) Triamcinolone (Verified Allergy, Intermediate, SWELLING/RASH, 10/18/16) Aspirin (Verified Adverse Reaction, Severe, DIZZINESS, LIGHTHEADED, 10/18/16) Augmentin (Verified Adverse Reaction, Severe, Nausea/Vomiting, 10/18/16) Uncoded Allergies THIMEROSAL ( Allergy, Intermediate, SWELLING/RASH, 11/02/15) [id number] ( Allergy, Intermediate, SEVERE SWELLING AND REDNESS, ) Exam I&O / VS 10/19/16 10/19/16 10/20/16 15:00 23:00 07:00 Intake Total 800 ml Balance 800 ml Intake Oral 300 ml IV Total 500 ml # Voids 3 3 Vital Signs Date Time Temp Pulse Resp B/P Pulse Ox O2 Delivery O2 Flow Rate FiO2 10/20/16 09:00 70 10/20/16 07:00 95.9 92 18 118/58 96 10/20/16 03:41 96.3 86 18 121/61 98 10/20/16 01:19 97.6 97 18 140/65 95 10/19/16 20:54 97.8 83 18 156/69 97 10/19/16 20:00 85 10/19/16 17:45 79 10/19/16 17:16 97.6 78 17 177/75 96 10/19/16 15:30 98.2 96 20 152/68 95 Objective Radiology Results Last 48 hours Impressions Neck Magnetic Resonance Angiography 10/19/16 0000 Signed Impressions: Service Date/Time: Wednesday, October 19, 2016 14:49 - CONCLUSION: No significant stenosis seen. Jaspal Ochoa MD Head Magnetic Resonance Angiography 10/19/16 0000 Signed Impressions: Service Date/Time: Wednesday, October 19, 2016 14:49 - CONCLUSION: Severely diminished flow in the left posterior cerebral artery from the origin of the basilar with a minimal contribution of flow from the left PCOM. This vascular abnormality does correlate with the acute infarction seen on MRI. Jaspal Ochoa MD Head CT 10/19/16 0000 Signed Impressions: Service Date/Time: Wednesday, October 19, 2016 11:03 - CONCLUSION: Normal examination for a patient of this age. No significant change has occurred. Ralph Fontenot MD Brain MRI 10/19/16 0000 Signed Impressions: Service Date/Time: Wednesday, October 19, 2016 14:49 - CONCLUSION: Acute nonhemorrhagic infarction in the left posterior cerebral artery distribution without significant mass effect or surrounding edema. This does correlate with the vascular abnormality seen on MRA. Jaspal Ochoa MD Chest X-Ray 10/18/16 1807 Signed Impressions: Service Date/Time: Tuesday, October 18, 2016 18:23 - CONCLUSION: The lungs are clear. Jaspal Ochoa MD Micro and Labs Laboratory Tests Test 10/20/16 06:28 Triglycerides Level 107 Cholesterol Level 182 LDL Cholesterol 95 HDL Cholesterol 65.5 Cholesterol/HDL Ratio 2.77 Date/Time Procedure Status Source Growth 10/18/16 18:20 Aerobic Blood Culture - Preliminary Resulted Blood Peripheral NO GROWTH IN 2 DAYS 10/18/16 18:20 Anaerobic Blood Culture - Preliminary Resulted Blood Peripheral NO GROWTH IN 2 DAYS Georgina Torres MD Oct 20, 2016 13:54
--- NOTE | 2016-10-20 13:58 | HHI.PR ---
Subjective Remarks Patient says she still has the rash and is worse at night. No new motor or sensory deficit. No change ion vision. No n/v/d/c. Objective Vitals Vital Signs Date Time Temp Pulse Resp B/P Pulse Ox O2 Delivery O2 Flow Rate FiO2 10/20/16 09:00 70 10/20/16 07:00 95.9 92 18 118/58 96 10/20/16 03:41 96.3 86 18 121/61 98 10/20/16 01:19 97.6 97 18 140/65 95 10/19/16 20:54 97.8 83 18 156/69 97 10/19/16 20:00 85 10/19/16 17:45 79 10/19/16 17:16 97.6 78 17 177/75 96 10/19/16 15:30 98.2 96 20 152/68 95 I/O 10/19/16 10/19/16 10/19/16 10/20/16 10/20/16 10/20/16 07:00 15:00 23:00 07:00 15:00 23:00 Intake Total 1235 ml 800 ml Balance 1235 ml 800 ml Intake Oral 480 ml 300 ml IV Total 755 ml 500 ml # Voids 6 3 3 # Bowel Movements 1 Result Diagram: 10/19/16 0815 10/19/16 0815 Imaging Last Impressions Neck Magnetic Resonance Angiography 10/19/16 0000 Signed Impressions: Service Date/Time: Wednesday, October 19, 2016 14:49 - CONCLUSION: No significant stenosis seen. Jaspal Ochoa MD Head Magnetic Resonance Angiography 10/19/16 0000 Signed Impressions: Service Date/Time: Wednesday, October 19, 2016 14:49 - CONCLUSION: Severely diminished flow in the left posterior cerebral artery from the origin of the basilar with a minimal contribution of flow from the left PCOM. This vascular abnormality does correlate with the acute infarction seen on MRI. Jaspal Ochoa MD Head CT 10/19/16 0000 Signed Impressions: Service Date/Time: Wednesday, October 19, 2016 11:03 - CONCLUSION: Normal examination for a patient of this age. No significant change has occurred. Ralph Fontenot MD Brain MRI 10/19/16 0000 Signed Impressions: Service Date/Time: Wednesday, October 19, 2016 14:49 - CONCLUSION: Acute nonhemorrhagic infarction in the left posterior cerebral artery distribution without significant mass effect or surrounding edema. This does correlate with the vascular abnormality seen on MRA. Jaspal Ochoa MD Chest X-Ray 10/18/161806 Signed Impressions: Service Date/Time: Tuesday, October 18, 2016 18:23 - CONCLUSION: The lungs are clear. Jaspal Ochoa MD Objective Remarks GENERAL: Well-developed, well-nourished female patient in NAD. SKIN: Warm and dry. Diffuse maculopapular rash throughout neck, chest, trunk, back, and spreads down to the bilateral lower extremities. HEAD: Atraumatic. Normocephalic. EYES: Pupils equal and round. No scleral icterus. No injection or drainage. ENT: No nasal bleeding or discharge. Mucous membranes pink and moist. NECK: Trachea midline. CARDIOVASCULAR: Regular rate and rhythm. No murmur. RESPIRATORY: No accessory muscle use. Clear to auscultation. Breath sounds equal bilaterally. GASTROINTESTINAL: Abdomen soft, non-tender, nondistended. Hepatic and splenic margins not palpable. MUSCULOSKELETAL: Extremities without clubbing, cyanosis, or edema. No obvious deformities. NEUROLOGICAL: Awake and alert. No obvious cranial nerve deficits. Motor grossly within normal limits. 5/5 muscle strength in the arms and legs. Normal speech. No pronator drift. PSYCHIATRIC: Appropriate mood and affect; insight and judgment normal. A/P Problem List: (1) Generalized weakness ICD Code: R53.1 Status: Acute (2) Allergic dermatitis ICD Code: L23.9 Status: Acute (3) Viral syndrome ICD Code: B34.9 Status: Acute Assessment and Plan 76-year-old female with a PMH of Rheumatoid Arthritis who was brought to the ER by family secondary to rash and generalized weakness. Generalized Weakness: Likely multifactorial-Recent PNA, Viral Syndrome and Allergic Dermatitis, c/o progressive weakness x1 wk, unable to ambulate. Vitals stable, labs unremarkable. IVF for hydration. PT for eval/tx. Acute Left OTC CLERK Ischemic CVA: Patient's imaging resulted. Brain MRI showed acute nonhemorrhagic infarction in the left posterior cerebral artery distribution without significant mass effect or surrounding edema. Head MRA showed severely diminished flow in the left posterior cerebral artery from the origin of the basilar with a minimal contribution of flow from the left PCOM; this vascular abnormality does correlate with the acute infarction seen on MRI. Neck MRA unremarkable. Neurology has already started Plavix 75mg daily. Patient allergic to aspirin. Dr. Torres, neurology recommends checking echo. Also Holter ordered, NIHSS, neuro checks, PT/OT/ST consults. Monitor on tele. Check lipid panel in the am. Hemoglobin A1c. 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 Now w/ maculopapular rash involving trunk/extremities, similar to previous episodes. Started on Prednisone by PCP. S/p IV Solumedrol, will continue on Prednisone 50mg po daily , Zantac bid, Zyrtec hs. Stop PO benadryl, likely contributing to weakness/ drowsiness. Received Epinephrine x1. Continue topical benadryl. Follow up w/ Sushi Chef as planned. RUE/RLE Numbness and Blurred Vision: concern for TIA/CVA. Check Head CT. Consult neurology. Viral Syndrome: generalized weakness/malaise possibly related to viral syndrome. CXR clear. IVF. DVT Prophylaxis: SCD/Teds. Discussed with the patient, nurse, family at bedside Cristina Anthony MD Oct 20, 2016 13:58
--- NOTE | 2016-10-20 14:38 | EC ---
Study Study Date:10/20/2016 STUDY CONCLUSIONS SUMMARY LEFT VENTRICLE: The cavity size was normal. Wall thickness was increased increased in a pattern of mild to moderate LVH. Systolic function was normal. The estimated ejection fraction was in the range of 60% to 65%. Wall motion was normal; there were no regional wall motion abnormalities. Doppler parameters are consistent with abnormal left ventricular relaxation (grade 1 diastolic dysfunction). If LV function is below 40, please consider prescribing an ACEI or ARB or document rationale for non-use. PROCEDURE DATA STUDY STATUS: Elective. Procedure: Transthoracic echocardiography. Image quality was good. Scanning was performed from the parasternal, apical, and subcostal acoustic windows. Study completion: The patient tolerated the procedure well. Transthoracic echocardiography. M-mode, complete 2D, complete spectral Doppler, and color Doppler. Patient status: Inpatient. CARDIAC ANATOMY LEFT VENTRICLE: The cavity size was normal. Wall thickness was increased increased in a pattern of mild to moderate LVH. Systolic function was normal. The estimated ejection fraction was in the range of 60% to 65%. Wall motion was normal; there were no regional wall motion abnormalities. Doppler parameters are consistent with abnormal left ventricular relaxation (grade 1 diastolic dysfunction). AORTIC VALVE: Trileaflet; normal thickness leaflets. Doppler: Transvalvular velocity was within the normal range. There was no stenosis. No regurgitation. AORTA: Aortic root: The aortic root was normal in size. MITRAL VALVE: Structurally normal valve. Doppler: Transvalvular velocity was within the normal range. There was no evidence for stenosis. Trace regurgitation. Mean gradient: 2mm Hg (D). Peak gradient: 5mm Hg (D). LEFT ATRIUM: The atrium was normal in size. RIGHT VENTRICLE: The cavity size was normal. Wall thickness was normal. PULMONIC VALVE: Doppler: Transvalvular velocity was within the normal range. There was no evidence for stenosis. No regurgitation. TRICUSPID VALVE: Structurally normal valve. Doppler: Transvalvular velocity was within the normal range. Trace to mild regurgitation. PULMONARY ARTERY: The main pulmonary artery was normal-sized. Systolic pressure was within the normal range. RIGHT ATRIUM: The atrium was normal in size. PERICARDIUM: There was no pericardial effusion. SYSTEMIC VEINS: Inferior vena cava: The vessel was normal in size. BASIC MEASUREMENTS ADULT Normal Left ventricle LV internal dimension, ED, chordal level, *41.7 mm 43-52 PLAX LV posterior wall thickness, ED 7.22 mm IVS/LVPW ratio, ED 1.21 <1.3 Ventricular septum Septal thickness, ED 8.71 mm Aortic valve Leaflet separation 17 mm 15-26 Left atrium Anterior-posterior dimension 28 mm Right ventricle RV internal dimension, ED, PLAX 26.6 mm 19-38 BASIC MEASUREMENTS ADULT Normal Aortic valve Leaflet separation 17 mm 15-26 Aorta Root diameter, ED 29 mm 20-37 DOPPLER MEASUREMENTS ADULT Normal Aortic valve VTI, S 34.7 cm Mitral valve Peak E-wave velocity 91.9 cm/s Peak A-wave velocity 76.5 cm/s Mean velocity, D 62.2 cm/s Mean gradient, D 2 mm Hg Peak gradient, D 5 mm Hg Peak E/A ratio 1.2 Tricuspid valve Regurgitant peak velocity 247 cm/s Peak RV-RA gradient, S 24 mm Hg Maximal regurgitant velocity 247 cm/s LEGEND: Mean values are shown as u=mean value. Asterisk (*) lopez values outside specified normal range. Prepared and signed by Toni Hartley [id number]
[2016-10-20] MEDS: diphenhydrAMINE HCL 2%/ZINC ACETATE 0.1% CREAM 30 APPLIC/30 GM TUBE TOPICAL PRN (18:50)
[2016-10-20] MEDS: CETIRIZINE HCL 10 MG TAB PO SCH (20:44)
[2016-10-20] MEDS: ATORVASTATIN 40 MG TAB PO SCH (21:00)
[2016-10-21] VITALS (7 sets, daily range): BP systolic 132–147; BP diastolic 59–68; PULSE 74–90; RESP 17–20; TEMP 96.2–97.5; O2SAT 93–98
[2016-10-21] MEDS: INSULIN ASPART SUPPLEMENTAL SCALE SQ SCH ×4 (07:00→21:00)
--- NOTE | 2016-10-21 07:39 | HHI.PR ---
Subjective Remarks Says she feels improved today, however says she doesn't feel comfortable to go home. Plan to DC to SNF. Says she still has right sided paresthesia and is not sure if she can walk well as she was not walking much with PT. Says she has vision deficit. No new motor/sensory deficit. Objective Vitals Vital Signs Date Time Temp Pulse Resp B/P Pulse Ox O2 Delivery O2 Flow Rate FiO2 10/21/16 05:13 97.5 76 20 147/67 93 10/21/16 00:45 96.5 79 19 146/64 93 10/20/16 21:00 96.7 78 20 137/62 94 10/20/16 20:00 83 10/20/16 15:00 96.2 79 20 145/64 93 10/20/16 09:00 70 I/O 10/20/16 10/20/16 10/20/16 10/21/16 10/21/16 10/21/16 07:00 15:00 23:00 07:00 15:00 23:00 # Voids 3 6 1 1 # Bowel Movements 0 Result Diagram: 10/19/16 0815 10/19/16 0815 Imaging Last Impressions Neck Magnetic Resonance Angiography 10/19/16 0000 Signed Impressions: Service Date/Time: Wednesday, October 19, 2016 14:49 - CONCLUSION: No significant stenosis seen. Jaspal Ochoa MD Head Magnetic Resonance Angiography 10/19/16 0000 Signed Impressions: Service Date/Time: Wednesday, October 19, 2016 14:49 - CONCLUSION: Severely diminished flow in the left posterior cerebral artery from the origin of the basilar with a minimal contribution of flow from the left PCOM. This vascular abnormality does correlate with the acute infarction seen on MRI. Jaspal Ochoa MD Head CT 10/19/16 0000 Signed Impressions: Service Date/Time: Wednesday, October 19, 2016 11:03 - CONCLUSION: Normal examination for a patient of this age. No significant change has occurred. Ralph Fontenot MD Brain MRI 10/19/16 0000 Signed Impressions: Service Date/Time: Wednesday, October 19, 2016 14:49 - CONCLUSION: Acute nonhemorrhagic infarction in the left posterior cerebral artery distribution without significant mass effect or surrounding edema. This does correlate with the vascular abnormality seen on MRA. Jaspal Ochoa MD Chest X-Ray 10/18/16 1807 Signed Impressions: Service Date/Time: Tuesday, October 18, 2016 18:23 - CONCLUSION: The lungs are clear. Jaspal Ochoa MD Objective Remarks GENERAL: Well-developed, well-nourished female patient in [facility]. SKIN: Warm and dry. Diffuse maculopapular rash throughout neck, chest, trunk, back, and spreads down to the bilateral lower extremities. HEAD: Atraumatic. Normocephalic. EYES: Pupils equal and round. No scleral icterus. No injection or drainage. ENT: No nasal bleeding or discharge. Mucous membranes pink and moist. NECK: Trachea midline. CARDIOVASCULAR: Regular rate and rhythm. No murmur. RESPIRATORY: No accessory muscle use. Clear to auscultation. Breath sounds equal bilaterally. GASTROINTESTINAL: Abdomen soft, non-tender, nondistended. Hepatic and splenic margins not palpable. MUSCULOSKELETAL: Extremities without clubbing, cyanosis, or edema. No obvious deformities. NEUROLOGICAL: Awake and alert. No obvious cranial nerve deficits. Motor grossly within normal limits. 5/5 muscle strength in the arms and legs. Normal speech. No pronator drift. PSYCHIATRIC: Appropriate mood and affect; insight and judgment normal. A/P Problem List: (1) Generalized weakness ICD Code: R53.1 Status: Acute (2) Allergic dermatitis ICD Code: L23.9 Status: Acute (3) Viral syndrome ICD Code: B34.9 Status: Acute Assessment and Plan 76-year-old female with a PMH of Rheumatoid Arthritis who was brought to the ER by family secondary to rash and generalized weakness. Generalized Weakness: Likely multifactorial-Recent PNA, Viral Syndrome and Allergic Dermatitis, c/o progressive weakness x1 wk, unable to ambulate. Vitals stable, labs unremarkable. IVF for hydration. PT for eval/tx. Acute Left MANAGER SERVICING Ischemic CVA: Patient's imaging resulted. Brain MRI showed acute nonhemorrhagic infarction in the left posterior cerebral artery distribution without significant mass effect or surrounding edema. Head MRA showed severely diminished flow in the left posterior cerebral artery from the origin of the basilar with a minimal contribution of flow from the left PCOM; this vascular abnormality does correlate with the acute infarction seen on MRI. Neck MRA unremarkable. Neurology has already started Plavix 75mg daily. Patient allergic to aspirin. Dr. Torres, neurology recommends checking echo. Also Holter ordered, NIHSS, neuro checks, PT/OT/ST consults. Monitor on tele. Lipid panel reviewed, start statin. Hemoglobin A1c of 6 2D ECHO rev. EF 60-65%, grade1 diastolic dysfunction. 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 Now w/ maculopapular rash involving trunk/extremities, similar to previous episodes. Started on Prednisone by PCP. S/p IV Solumedrol, will continue on Prednisone 50mg po daily , Zantac bid, Zyrtec hs. Stop PO benadryl, likely contributing to weakness/ drowsiness. Received Epinephrine x1. Continue topical benadryl. Follow up w/ [employer] as planned. RUE/RLE Numbness and Blurred Vision: concern for TIA/CVA. Check Head CT. Consult neurology. Viral Syndrome: generalized weakness/malaise possibly related to viral syndrome. CXR clear. IVF. DVT Prophylaxis: SCD/Teds. Discussed with the patient, nurse, family at bedside Cristina Anthony MD Oct 21, 2016 07:39
[2016-10-21] MEDS ORDERED: FAMO20TA2 PO (07:42)
[2016-10-21] MEDS ORDERED: PLAV75TA29 PO (07:42)
[2016-10-21] MEDS ORDERED: CETI10 PO (07:42)
[2016-10-21] MEDS ORDERED: SM A2CRE3 TOPICAL (07:42)
[2016-10-21] MEDS ORDERED: LIPI40TA PO (07:42)
--- NOTE | 2016-10-21 07:42 | HHI.DCPOC ---
Discharge Care Plan Goals to Promote Your Health * To prevent worsening of your condition and complications * To maintain your health at the optimal level Directions to Meet Your Goals Take your medications as prescribed Follow your dietary instruction Follow activity as directed Keep your appointments as scheduled Take your immunizations and boosters as scheduled If your symptoms worsen call your PCP, if no PCP go to Urgent Care Center or Emergency Room Smoking is Dangerous to Your Health. Avoid second hand smoke Call the 24-hour hour crisis hotline for domestic abuse at Cristina Anthony MD Oct 21, 2016 07:42
--- NOTE | 2016-10-21 07:42 | HHI.DS ---
Discharge Summary Admission Date Oct 19, 2016 at 15:58 Discharge Date: Oct 22, 2016 Admitting Diagnosis generalized weakness. Allergic dermatitis. (1) CVA (cerebral vascular accident) ICD Code: I63.9 (2) Generalized weakness ICD Code: R53.1 Diagnosis: Principal (3) Allergic dermatitis ICD Code: L23.9 Diagnosis: Secondary (4) Viral syndrome ICD Code: B34.9 Diagnosis: Principal Procedures none Brief History - From Admission This is a 76-year-old female with a PMH of Rheumatoid Arthritis who was brought to the ER by family secondary to generalized weakness. Per pt and family, she was started on Zithro for PNA approx 1 wk ago w/ some improvement. States she developed rash on torso which she's had several times in the past, and for which she follows w/ a Crossing Watchman, diagnosed w/ Allergic Dermatitis from daphne/citrus. Seen by PCP on Thursday and states rash involved neck/trunk only , prescribed Prednisone and Benadryl but states rash has progressed to lower extremities-similar to previous episodes. Today, pt w/ significant weakness. Daughter reports she was unable to get her up at which point they called 911. S /p Benadryl IV en route to ER, somewhat lethargic on arrival, now AA&Ox4. CBC/BMP: 10/19/16 0815 10/19/16 0815 Significant Findings Laboratory Tests Test 10/18/16 10/19/16 10/20/16 18:15 08:15 06:28 Neutrophils (%) (Auto) 89.9 % 89.4 % (16.0-70.0) (16.0-70.0) Lymphocytes (%) (Auto) 7.3 % 7.6 % (9.0-44.0) (9.0-44.0) Neutrophils # (Auto) 9.2 TH/MM3 12.1 TH/MM3 (1.8-7.7) (1.8-7.7) Lymphocytes # (Auto) 0.7 TH/MM3 (1.0-4.8) Urine Ketones 10 mg/dL (NEG) Estimat Glomerular Filtration 64 ML/MIN (>89) 57 ML/MIN (>89) Rate Random Glucose 127 MG/DL 141 MG/DL (74-106) (74-106) Calcium Level 8.0 MG/DL 8.0 MG/DL (8.5-10.1) (8.5-10.1) Albumin 3.2 GM/DL 3.1 GM/DL (3.4-5.0) (3.4-5.0) White Blood Count 13.5 TH/MM3 (4.0-11.0) Chloride Level 112 MEQ/L (98-107) Carbon Dioxide Level 18.2 MEQ/L (21.0-32.0) HDL Cholesterol 65.5 MG/DL (40.0-60.0) Imaging Last Impressions Neck Magnetic Resonance Angiography 10/19/16 0000 Signed Impressions: Service Date/Time: Wednesday, October 19, 2016 14:49 - CONCLUSION: No significant stenosis seen. Jaspal Ochoa MD Head Magnetic Resonance Angiography 10/19/16 0000 Signed Impressions: Service Date/Time: Wednesday, October 19, 2016 14:49 - CONCLUSION: Severely diminished flow in the left posterior cerebral artery from the origin of the basilar with a minimal contribution of flow from the left PCOM. This vascular abnormality does correlate with the acute infarction seen on MRI. Jaspal Ochoa MD Head CT 10/19/16 0000 Signed Impressions: Service Date/Time: Wednesday, October 19, 2016 11:03 - CONCLUSION: Normal examination for a patient of this age. No significant change has occurred. Ralph Fontenot MD Brain MRI 10/19/16 0000 Signed Impressions: Service Date/Time: Wednesday, October 19, 2016 14:49 - CONCLUSION: Acute nonhemorrhagic infarction in the left posterior cerebral artery distribution without significant mass effect or surrounding edema. This does correlate with the vascular abnormality seen on MRA. Jaspal Ochoa MD Chest X-Ray 10/18/16 180 Signed Impressions: Service Date/Time: Tuesday, October 18, 2016 18:23 - CONCLUSION: The lungs are clear. Jaspal Ochoa MD PE at Discharge GENERAL: Well-developed, well-nourished female patient in [facility]. SKIN: Warm and dry. Diffuse maculopapular rash throughout neck, chest, trunk, back, and spreads down to the bilateral lower extremities. HEAD: Atraumatic. Normocephalic. EYES: Pupils equal and round. No scleral icterus. No injection or drainage. ENT: No nasal bleeding or discharge. Mucous membranes pink and moist. NECK: Trachea midline. CARDIOVASCULAR: Regular rate and rhythm. No murmur. RESPIRATORY: No accessory muscle use. Clear to auscultation. Breath sounds equal bilaterally. GASTROINTESTINAL: Abdomen soft, non-tender, nondistended. Hepatic and splenic margins not palpable. MUSCULOSKELETAL: Extremities without clubbing, cyanosis, or edema. No obvious deformities. NEUROLOGICAL: Awake and alert. No obvious cranial nerve deficits. Motor grossly within normal limits. 5/5 muscle strength in the arms and legs. Normal speech. No pronator drift. PSYCHIATRIC: Appropriate mood and affect; insight and judgment normal. Pt update on day of discharge Feels much better. Says she will go to [facility] and she is happy has been accepted. In the chair. Says she feels improved. No new deficit. Cl;eared for dC by neuro Hospital Course 76-year-old female with a PMH of Rheumatoid Arthritis who was brought to the ER by family secondary to rash and generalized weakness. Generalized Weakness: Likely multifactorial-Recent PNA, Viral Syndrome and Allergic Dermatitis, c/o progressive weakness x1 wk, unable to ambulate. Vitals stable, labs unremarkable. IVF for hydration. PT for eval/tx. 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 Brain MRI showed acute nonhemorrhagic infarction in the left posterior cerebral artery distribution without significant mass effect or surrounding edema. Head MRA showed severely diminished flow in the left posterior cerebral artery from the origin of the basilar with a minimal contribution of flow from the left PCOM; this vascular abnormality does correlate with the acute infarction seen on MRI. Neck MRA unremarkable. Neurology has already started Plavix 75mg daily. Patient allergic to aspirin. Dr. Torres, neurology recommends checking echo. Also Holter ordered, NIHSS, neuro checks, PT/OT/ST consults. Monitor on tele. Lipid panel reviewed, start statin. Hemoglobin A1c of 6 2D ECHO rev. EF 60-65%, grade1 diastolic dysfunction. 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 Now w/ maculopapular rash involving trunk/extremities, similar to previous episodes. Started on Prednisone by PCP. S/p IV Solumedrol, will continue on Prednisone 50mg po daily , Zantac bid, Zyrtec hs. Stop PO benadryl, likely contributing to weakness/ drowsiness. Received Epinephrine x1. Continue topical benadryl. Follow up w/ Crossing Watchman as planned. RUE/RLE Numbness and Blurred Vision: concern for TIA/CVA. Check Head CT. Consult neurology. Viral Syndrome: generalized weakness/malaise possibly related to viral syndrome. CXR clear. IVF. DVT Prophylaxis: SCD/Teds. Improved, no new deficit. DC to rehab in fairly good condition. To follow up as OP with PCP and consultants. Pt Condition on Discharge: Fair Discharge Disposition: Rehab Inpatient Discharge Time: > 30 minutes Discharge Instructions DIET: Follow Instructions for: Heart Healthy Diet Speech Therapy-Diet Recommends: Regular Activities you can perform: Regular-No Restrictions Follow up Referrals: Neurology - 1 Week with Georgina Torres MD PCP Follow-up - 3-5 Days New Medications: Atorvastatin (Lipitor) 40 Mg Tab 40 MG PO HS Cholesterol Management #30 TAB Cetirizine (Cetirizine) 10 Mg Tab 10 MG PO HS Allergies #30 TAB Clopidogrel (Plavix) 75 Mg Tab 75 MG PO DAILY Blood Clot Prevention #30 TAB Diphenhydramine-Zinc Acetate (Sm Anti-Itch Extra Streng 2-0.1 %) 1 Cre Cre 1 APPLIC TOPICAL Q6HR PRN ITCHING #30 TUBE Famotidine (Famotidine) 20 Mg Tab 10 MG PO BID gi protection #30 TAB Cristina Anthony MD Oct 21, 2016 07:42
[2016-10-21] MEDS: SODIUM CHLORIDE 0.9% FLUSH 5 ML FLUSH FLUSH SCH ×2 (09:35→20:51)
[2016-10-21] MEDS: CLOPIDOGREL 75 MG TAB PO SCH (09:35)
[2016-10-21] MEDS: predniSONE 50 MG TAB PO SCH (09:36)
[2016-10-21] MEDS: FAMOTIDINE 20 MG TAB PO SCH ×2 (09:40→20:48)
[2016-10-21] MEDS: SODIUM CHLOR 0.9% 1000 ML INJ 1,000 ML IV SCH ×2 (15:30→18:00)
--- NOTE | 2016-10-21 15:56 | HM ---
Date Performed: 10/19/2016 Time Performed: 16:34:00 HOOKUP DATE: 10/19/16 04:34:00 PM Sun ANALYSIS START TIME: 10/19/2016 4:39:00 PM ANALYSIS END TIME: 10/20/2016 4:42:59 PM PATIENT AGE: 76 PATIENT HEIGHT: 61 PATIENT WEIGHT: 121 DRUG LIST: room # 1501 PATIENT DIAGNOSIS: generalized weakness TEST NARRATIVE: The patient's average heart rate was 83 BPM. No episodes of tachycardia wer e noted. No episodes of bradycardia were noted. No pauses exceeding 2.0 seconds were noted. No ventricular ectopics were noted. 41 supraventricular ectopics, which represented < 1% of the t otal beat count, were noted. The highest supraventricular ectopic frequency occurred from 12:00 AM t o 01:00 AM Mon. During this time 9 SVE(s) occurred. Multiple episodes of ST depression (defined as -1.0 mm or more) were noted in channel 1. The maximum depression of -2.1 mm occurred at 07:22:41 AM Mon. Multiple episodes of ST depression (defined as -1.0 mm or more) were noted in channel 2. The maximum depression of -2.0 mm occurred at 11:54:23 PM Sun. Multiple episodes of ST depression (d efined as -1.0 mm or more) were noted in channel 3. The maximum depression of -1.9 mm occurred at 1 1:56:47 PM Sun. TEST INTERPRETATION: Patient undergoes a holter monitor for stated indication of generalized wea kness.A diary is provided, but no entries were made. The holter monitor showes Sinus rhythm varying from 63 to 110 bpm. There were occasional PAC's. There were rear brief episodes of nonsustai tio supraventricular tachycardia. There is little or no ventricular ectopy. There are no all arrhyt hmias noted. Conclussion: Relatively normal holter monitor with occasional PAC'S and occasional brief episodes of nonsutained supraventricular tachycardia . No significant tachy arrhythmias or all arr hythmias noted. No significant ventricular ectopy noted. No diary entries made so it is unknown as t o whrther the patient is symptomatic. Signed by : Vonda Shaikh
[2016-10-21] MEDS: CETIRIZINE HCL 10 MG TAB PO SCH (20:48)
[2016-10-21] MEDS: ATORVASTATIN 40 MG TAB PO SCH (20:48)
[2016-10-21] MEDS: diphenhydrAMINE HCL 2%/ZINC ACETATE 0.1% CREAM 30 APPLIC/30 GM TUBE TOPICAL PRN (22:00)
[2016-10-22] VITALS: BP 104/63; PULSE 76; RESP 16; TEMP 97.7; O2SAT 97
[2016-10-22] MEDS: SODIUM CHLOR 0.9% 1000 ML INJ 1,000 ML IV SCH (04:00)
[2016-10-22 04:38] VITALS: BP 160/66; PULSE 80; RESP 17; TEMP 97.8; O2SAT 97
[2016-10-22] MEDS: INSULIN ASPART SUPPLEMENTAL SCALE SQ SCH (07:00)
[2016-10-22 08:36] VITALS: BP 138/68; PULSE 73; RESP 18; TEMP 96.3; O2SAT 94
[2016-10-22] MEDS: SODIUM CHLORIDE 0.9% FLUSH 5 ML FLUSH FLUSH SCH (09:00)
--- NOTE | 2016-10-22 09:01 | HHI.PR ---
Review/Management Daily Summary neuro same field loss on the right anxious add statin, check echo rehab 10/22/2016: feeling much better less anxious left field defect persist ok neuro navarro to go to rehab meds as is Subjective Subjective Comments No acute events reported No headache No chest pain No dyspnea Active Medications Current Medications Medications (Trade) Dose Ordered Sig/Krishan Route Start Time Stop Time Status Last Admin (NS Flush) 2 ml UNSCH PRN FLUSH 10/18/16 20:00 (NS Flush) 2 ml BID FLUSH 10/18/16 21:00 10/21/16 09:35 (Zofran Inj) 4 mg Q6H PRN IVP 10/18/16 20:00 (Dulcolax Supp) 10 mg DAILY PRN NC 10/18/16 20:00 (Tylenol) 650 mg Q6H PRN PO 10/18/16 20:00 10/18/16 23:06 ([place] 5-325 Mg) 1 tab Q4H PRN PO 10/18/16 20:00 ([place] 10-325 Mg) 1 tab Q4H PRN PO 10/18/16 20:00 (ZyrTEC) 10 mg HS PO 10/19/16 21:00 10/21/16 20:48 (Pepcid) 10 mg BID PO 10/19/16 10:00 10/21/16 20:48 (Deltasone) 50 mg DAILY PO 10/19/16 11:00 10/21/16 09:36 (Plavix) 75 mg DAILY PO 10/19/16 15:00 10/21/16 09:35 (Ativan Inj) 0.5 mg ONCE PRN IV PUSH 10/19/16 15:00 10/24/16 14:59 (Vasotec Inj) 1.25 mg Q4H PRN IV 10/19/16 16:00 (D50w (Vial) Inj) 25 ml UNSCH PRN IV PUSH 10/19/16 16:00 (Glucagon Inj) 1 mg UNSCH PRN IM/SQ 10/19/16 16:00 (Lipitor) 40 mg HS PO 10/20/16 21:00 (Benadryl 2% Cream) 1 applic Q6HR PRN TOPICAL 10/20/16 18:00 10/21/16 22:00 Allergies Allergies Coded Allergies Cortisporin (Verified Allergy, Severe, SWEELING, ITCHING, 10/18/16) Penicillin (Verified Allergy, Severe, PT DENIES ALLERY, 10/18/16) Sulfa (Verified Allergy, Severe, PT DENIES ALLERGY, 10/18/16) Hydrocortisone (Verified Allergy, Intermediate, SWELLING/RASH, 10/18/16) Neomycin (Verified Allergy, Intermediate, SWELLING/RASH, 10/18/16) Simvastatin (Verified Allergy, Intermediate, RASH/SWELLING/ITCHING, 10/18/16) Triamcinolone (Verified Allergy, Intermediate, SWELLING/RASH, 10/18/16) Aspirin (Verified Adverse Reaction, Severe, DIZZINESS, LIGHTHEADED, 10/18/16) Augmentin (Verified Adverse Reaction, Severe, Nausea/Vomiting, 10/18/16) Uncoded Allergies THIMEROSAL ( Allergy, Intermediate, SWELLING/RASH, 11/02/15) [id number] ( Allergy, Intermediate, SEVERE SWELLING AND REDNESS, ) Exam I&O / VS 10/21/16 10/21/16 10/22/16 15:00 23:00 07:00 Intake Total 480 ml 240 ml 120 ml Balance 480 ml 240 ml 120 ml Intake Oral 480 ml 240 ml 120 ml # Voids 2 3 3 # Bowel Movements 1 Vital Signs Date Time Temp Pulse Resp B/P Pulse Ox O2 Delivery O2 Flow Rate FiO2 10/22/16 08:36 96.3 73 18 138/68 94 10/22/16 04:38 97.8 80 17 160/66 97 10/22/16 00:00 97.7 76 16 104/63 97 10/21/16 20:00 97.1 90 17 142/59 95 10/21/16 20:00 77 10/21/16 16:00 96.9 74 18 132/68 98 10/21/16 12:00 96.2 83 18 135/62 94 10/21/16 09:03 74 Objective Micro and Labs Date/Time Procedure Status Source Growth 10/18/16 18:20 Aerobic Blood Culture - Preliminary Resulted Blood Peripheral NO GROWTH IN 3 DAYS 10/18/16 18:20 Anaerobic Blood Culture - Preliminary Resulted Blood Peripheral NO GROWTH IN 3 DAYS Georgina Torres MD Oct 22, 2016 09:01
[2016-10-22] MEDS: CLOPIDOGREL 75 MG TAB PO SCH (09:25)
[2016-10-22] MEDS: predniSONE 50 MG TAB PO SCH (09:25)
[2016-10-22] MEDS: FAMOTIDINE 20 MG TAB PO SCH (09:25)
[2016-11-03] MEDS ORDERED: PLAV75TA29 PO (08:27)
[2016-11-03] MEDS ORDERED: SM A2CRE3 TOPICAL (08:27)
[2016-11-03] MEDS ORDERED: LIPI40TA PO (08:27)
[2016-11-03] MEDS ORDERED: FAMO20TA2 PO (08:27)
[2016-11-03] MEDS ORDERED: CETI10 PO (08:27)
== END 2016-10-22 10:39 | DRG 66 ==
LOC: NEPE 17:26 → NEDA 19:46 → NEPGCP 21:54 → OBSVTOIN 10-19 15:58 → N05A 10-19 17:14
PROVIDERS: ADMIT Hospitalist; ATTEND Hospitalist
DX: I63.532 Cerebral infarction due to unspecified occlusion or stenosis of left posterior cerebral artery (principal); M06.9 Rheumatoid arthritis, unspecified; H54.61 Unqualified visual loss, right eye, normal vision left eye; L23.9 Allergic contact dermatitis, unspecified cause; B34.9 Viral infection, unspecified; R20.0 Anesthesia of skin; R53.1 Weakness; Z88.1 Allergy status to other antibiotic agents; Z88.0 Allergy status to penicillin; Z88.2 Allergy status to sulfonamides; Z88.8 Allergy status to other drugs, medicaments and biological substances
CPT/HCPCS: 70450; 70544; 70548; 70551; 71010; 80053; 80061; 81001; 82948; 83036; 83605; 85025; 87040; 93005; 93225; 93226; 93306; 99285; A9579; G0378; G8987-GP; G8988-GP; J0171; J1200; J2930; J7030; J7512